=== PATIENT | male | born 1985 | race Caucasian/White ===

== ENCOUNTER 2019-01-11 09:11 | Emergency (ER) | payer BC ==
--- OUTSIDE RECORDS SUMMARY | 2019-01-11 09:16 | XMS REPORT | Continuity of Care Document ---
:1985 External Reference #:[id number] Author Name Aramis Rudolph MD Address [address] [place] [address] Care Team Providers Name Role Phone Shawn Carroll III, MD - Internal Care Team Information Gore Maker [phone] Medicine Althea Luciano MD - Internal Care Team Information Gore Maker Medicine Problems Active Problems Provider Date Allergic rhinitis Aramis Rudolph MD Onset: 12/14/2018 Allergic rhinitis due to pollen Aramis Rudolph MD Onset: 12/14/2018 Social History Type Date Description Comments Sex Unknown Tobacco Use Start: Unknown Patient has never smoked Smoking Status Reviewed: 12/14/18 Patient has never smoked Allergies, Adverse Reactions, Alerts Active Allergies Reaction Severity Comments Date NKDA 12/14/2018 Cat Dander 12/14/2018 Pollen 12/14/2018 Medications Active Medications SIG Qnty Indications Ordering Provider Date Nasonex 2 intranasal 1units J30.1 Aramis Munoz 12/14/2018 50mcg/Act puffs every day MD [facility] Suspension Xyzal 1 tab by mouth 30tabs J30.1 Aramis Munoz 12/14/2018 5mg Tablets every day as MD Ronni needed Pazeo two drops each 2.500ml J30.1 Aramis Munoz 12/14/2018 0.7% Solution eye as needed MD Ronni every day as needed Allergy Nasal [place] Stevie Bradley, 01/04/2018 24 Hour CONTACT LENS EDGE BUFFER-C 50mcg/Act Suspension Flonase Allergy 2 puffs each Unknown Relief nostril every day 50mcg/Act Suspension Eye Allergy Relief Unknown 0.025-0.3% Solution Immunizations Description No Information Available Vital Signs Date Vital Result Comment 12/14/2018 2:38pm BP Systolic 145 mmHg BP Diastolic 105 mmHg Height 67.5 inches 5'7.50" Weight 214.00 lb BMI (Body Mass Index) 33.0 kg/m2 Heart Rate 60 /min O2 % BldC Oximetry 95 % 08/31/2018 10:39am Height 67.5 inches Weight 225.00 lb BMI (Body Mass Index) 34.7 kg/m2 Heart Rate 60 /min Body Temperature 98.5 F O2 % BldC Oximetry 95 % Results Test Date Facility Test Result H/L Range Note Laboratory test [facility] Total <pending> finding 9 [address] [place] [address] [phone] Order [facility] Skin Test <pending> 9 Seasonal and Environmental CBC Auto Diff N2N/CCD Import White Blood Count 8.5 3.5-10.8 9 10^3/uL Red Blood Count 5.22 10^6/uL 4.18-5.48 Hemoglobin 15.4 g/dL 14-18 Hematocrit 44 % 42-52 Mean Corpuscular Volume 85 fL 80-94 Mean Corpuscular Hemoglobin 29 pg 27-31 Mean Corpuscular HGB Conc 35 g/dL 31-36 Red Cell Distribution Width 13 % 10.5-15 Platelet Count 271 10^3/uL 150-450 Mean Platelet Volume 9.2 fL 7.4-10.4 Abs Neutrophils 3.9 10^3/uL 1.5-7.7 Abs Lymphocytes 2.6 10^3/uL 1-4.8 Abs Monocytes 0.8 10^3/uL 0-0.8 Abs Eosinophils 1.0 10^3/uL High 0-0.6 Abs Basophils 0.1 10^3/uL 0-0.2 Abs Nucleated RBC 0.0 10^3/uL Granulocyte % 46.3 % Lymphocyte % 30.8 % Monocyte % 9.4 % Eosinophil % 12.1 % Basophil % 1.4 % Nucleated Red Blood Cells % 0.1 1 CBC Auto Diff 08/31/2018 N2N/CCD Import White Blood Count 8.5 10^3/uL 3.5-10.8 Red Blood Count 5.22 10^6/uL 4.18-5.48 Hemoglobin 15.4 g/dL 14-18 Hematocrit 44 % 42-52 Mean Corpuscular Volume 85 fL 80-94 Mean Corpuscular Hemoglobin 29 pg 27-31 Mean Corpuscular HGB Conc 35 g/dL 31-36 Red Cell Distribution Width 13 % 10.5-15 Platelet Count 271 10^3/uL 150-450 Mean Platelet Volume 9.2 fL 7.4-10.4 Abs Neutrophils 3.9 10^3/uL 1.5-7.7 Abs Lymphocytes 2.6 10^3/uL 1-4.8 Abs Monocytes 0.8 10^3/uL 0-0.8 Abs Eosinophils 1.0 10^3/uL High 0-0.6 Abs Basophils 0.1 10^3/uL 0-0.2 Abs Nucleated RBC 0.0 10^3/uL Granulocyte % 46.3 % Lymphocyte % 30.8 % Monocyte % 9.4 % Eosinophil % 12.1 % Basophil % 1.4 % Nucleated Red Blood Cells % 0.1 1 Procedures Date Code Description Status 12/14/2018 19874 Allergy Tests Percutaneous W/ Allergenic Extracts Completed Medical Devices Description No Information Available Encounters Description No Information Available Assessments Date Code Description Provider 12/14/2018 J30.1 Allergic rhinitis due to pollen Aramis Rudolph MD 12/14/2018 J30.89 Other allergic rhinitis Aramis Rudolph MD Plan of Treatment 12/14/2018 - Aramis Rudolph MDJ30.1 Allergic rhinitis due to pollenNew Medication:Nasonex 50 mcg/Act - 2 intranasal puffs every dayXyzal 5 mg - 1 tab by mouth every day as neededPazeo 0.7 % - two drops each eye as needed every day as jqbrvuT15.89 Other allergic rhinitis Functional Status Description No Information Available Mental Status Description No Information Available Referrals Description No Information Available
--- OUTSIDE RECORDS SUMMARY | 2019-01-11 09:16 | XMS REPORT | Continuity of Care Document ---
:1985 External Reference #:[id number] Author Name Annika Wright NP (transmitted by agent of provider Aramis Rudolph) Address [address] [place] [address] Care Team Providers Name Role Phone Shawn Carroll III, MD - Internal Care Team Information School Bus Driver/Mechanic [phone] Medicine Althea Luciano MD - Internal Care Team Information School Bus Driver/Mechanic Medicine Problems Active Problems Provider Date Allergic rhinitis due to pollen Aramis Rudolph MD Onset: 12/14/2018 Allergic rhinitis Aramis Rudolph MD Onset: 12/14/2018 Chronic allergic conjunctivitis Annika Wright NP Onset: 12/28/2018 Social History Type Date Description Comments Sex Unknown Tobacco Use Start: Unknown Patient has never smoked Smoking Status Reviewed: 12/14/18 Patient has never smoked Allergies, Adverse Reactions, Alerts Active Allergies Reaction Severity Comments Date NKDA 12/14/2018 Cat Dander 12/14/2018 Pollen 12/14/2018 Medications Active Medications SIG Qnty Indications Ordering Provider Date Nasonex 2 intranasal 1units J30.1 Annika Wright NP 12/14/2018 50mcg/Act puffs every day Suspension Xyzal 1 tab by mouth 30tabs J30.1 Aramis Munoz 12/14/2018 5mg Tablets every day as MD Ronni needed Pazeo two drops each 2.500ml J30.1 Annika Wright NP 12/14/2018 0.7% Solution eye as needed every day as needed Allergy Nasal [place] Stevie Bradley, 01/04/2018 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 50mcg/Act Suspension Flonase Allergy 2 puffs each Unknown Relief nostril every day 50mcg/Act Suspension Eye Allergy Relief Unknown 0.025-0.3% Solution Immunizations Description No Information Available Vital Signs Date Vital Result Comment 12/28/2018 11:27am BP Systolic 142 mmHg BP Diastolic 110 mmHg Height 67.5 inches 5'7.50" Weight 214.00 lb BMI (Body Mass Index) 33.0 kg/m2 Heart Rate 64 /min O2 % BldC Oximetry 97 % 12/14/2018 2:38pm BP Systolic 145 mmHg BP Diastolic 105 mmHg Height 67.5 inches 5'7.50" Weight 214.00 lb BMI (Body Mass Index) 33.0 kg/m2 Heart Rate 60 /min O2 % BldC Oximetry 95 % Results Test Date Facility Test Result H/L Range Note Order 12/14/2018 [facility] Skin Test Seasonal < pending> and Environmental CBC Auto 08/31/2018 N2N/CCD Import White Blood Count 8.5 10^3/uL 3.5- 10.8 Diff Red Blood Count 5.22 10^6/uL 4.18-5.48 Hemoglobin [...] 1 Procedures Date Code Description Status 12/14/2018 91239 Allergy Tests Percutaneous W/ Allergenic Extracts Completed Medical Devices Description No Information Available Encounters Type Date Location Provider Dx Diagnosis Office Visit 12/28/2018 11:30a [place] Annika Wright NP J30.1 Allergic rhinitis due to pollen H10.45 Other chronic allergic conjunctivitis Office Visit 12/14/2018 2:30p Zoila Rudolph J30.1 Allergic rhinitis MD due to pollen J30.89 Other allergic rhinitis Assessments Date Code Description Provider 12/28/2018 J30.1 Allergic rhinitis due to pollen Annika Wright NP 12/28/2018 H10.45 Other chronic allergic conjunctivitis Annika Wright NP 12/14/2018 J30.1 Allergic rhinitis due to pollen Aramis Rudolph MD 12/14/2018 J30.89 Other allergic rhinitis Aramis Rudolph MD Plan of Treatment Future Appointment(s):06/28/2019 1:00 pm - Annika Wright NP at [id number] - Annika Wright NPJ30.1 Allergic rhinitis due to pollenComments:Patient presents for discussion of his skin testing to environmental allergens. All positives were discussed which includes grass and short ragweed. The allergy test correlate with the patient's symptoms is when he goes through weeds that is most reactive. He is currently taking Xyzal 5 mg daily, Nasonex 50 MCG's 2 sprays each nares daily, and he uses the pen daily as needed.It is difficult for him to avoid these situations given his employment, so I recommend he take the Xyzal every day use the nasal spray and Pazeo for breakthrough symptoms.We discussed immunotherapy he is not interested at this time he would like to wait and see how it goes with the medications. He is in agreement to a 6 month follow-up discuss at that time.H10.45 Other chronic allergic conjunctivitis Functional Status Description No Information Available Mental Status Description No Information Available Referrals Description No Information Available
--- OUTSIDE RECORDS SUMMARY | 2019-01-11 09:16 | XMS REPORT | Continuity of Care Document ---
:1985 External Reference #:[id number] Author Name Annika Wright NP (transmitted by agent of provider Silva Barnard) Address [address] [place] [address] Care Team Providers Name Role Phone Shawn Carroll III, MD - Internal Care Team Information Cleaning Manager Medicine Althea Luciano MD - Internal Care Team Information Cleaning Manager [phone] Medicine Problems Active Problems Provider Date Allergic [...] [facility] every day as needed Allergy Nasal [place] Stevie Bradley, 01/04/2018 24 Hour FUNCTIONAL ANALYST-C 50mcg/Act Suspension Flonase Allergy 2 puffs each [...] and Asthma Ige Total <pending> finding 9 [address] [place] [address] [phone] Order [facility] Skin [...] 1 Procedures Date Code Description Status 12/14/2018 72619 Allergy Tests Percutaneous W/ Allergenic Extracts Completed Medical Devices Description No Information Available Encounters Type Date Location Provider Dx Diagnosis Office Visit 12/14/2018 Nabeel Chambers30.1 Allergic rhinitis 2:30p MD due to pollen J30.89 Other allergic rhinitis Assessments Date Code Description Provider 12/14/2018 J30.1 Allergic rhinitis due to pollen Aramis Rudolph MD 12/14/2018 J30.89 Other allergic rhinitis Aramis Rudolph MD Plan of Treatment No Information Available Functional Status Description No Information Available Mental Status Description No Information Available Referrals Description No Information Available
--- OUTSIDE RECORDS SUMMARY | 2019-01-11 09:17 | XMS REPORT | Continuity of Care Document ---
:1985 External Reference #:[id number] Author Name Aramis Rudolph MD (transmitted by agent of provider Silva Baranrd) Address [address] [place] [address] Care Team Providers Name Role Phone Shawn Carroll III, MD - Internal Care Team Information Spar Cap Beveler [phone] Medicine Althea Luciano MD - Internal Care Team Information Spar Cap Beveler [phone] Medicine Problems Description No Information Available Social History Type Date Description Comments Sex Unknown Tobacco Use Start: Unknown Patient has never smoked Allergies, Adverse Reactions, Alerts Active Allergies Reaction Severity Comments Date NKDA 12/14/2018 Cat Dander 12/14/2018 Pollen 12/14/2018 Medications Active Medications SIG Qnty Indications Ordering Provider Date Allergy Nasal [place] [address] Stevie Bradley, 01/04/2018 Hour DOORS PREFITTER-C 50mcg/Act Suspension Flonase Allergy Relief 2 puffs each Unknown nostril every day 50mcg/Act Suspension Eye Allergy [...] Date Facility Test Result H/L Range Note CBC Auto Diff 08/31/2018 N2N/CCD Import White Blood 8.5 10^3/uL 3.5- 10.8 Count Red Blood Count 5.22 10^6/uL 4.18-5.48 Hemoglobin [...] Red Blood Cells % 0.1 1 Procedures Description No Information Available Medical Devices Description No Information Available Encounters Description No Information Available Assessments Description No Information Available Plan of Treatment No Information Available Functional Status Description No Information Available Mental Status Description No Information Available Referrals Description No Information Available
[2019-01-11 09:25] VITALS: BP 139/98
--- NOTE | 2019-01-11 09:45 | UC ---
Eye Complaint HPI - HPI Summary HPI Summary: Mr. Tello has had a red and draining right eye for couple days. It was matted shut this morning. It's irritated but doesn't really hurt. His son had at first and then his and now he has it. They're both treated with antibiotics - History of Current Complaint Chief Complaint: UCGeneralIllness Stated Complaint: EYE IRRITATION Time Seen by Provider: 01/11/19 09:34 Hx Obtained From: Patient Onset/Duration: Gradual Onset Timing: Constant Severity Initially: Mild Severity Currently: Mild Pain Intensity: 1 Location of Injury: Conjunctiva Character: Foreign Body Sensation Aggravating Factor(s): Nothing Alleviating Factor(s): Nothing Associated Signs And Symptoms: Positive: Negative - Allergies/Home Medications Allergies/Adverse Reactions: Allergies Allergy/AdvReac Type Severity Reaction Status Date / Time No Known Allergies Allergy Verified 01/11/19 09:16 Home Medications: Home Medications Ketotifen Fumarate [Allergy Eye Drops] 5 ml OP Q2H 01/11/19 [History Confirmed 01/11/19] PMH/Surg Hx/FS Hx/Imm Hx Previously Healthy: Yes - Surgical History Surgical History: Yes Surgery Procedure, Year, and Place: [facility] 2007 - Social History Alcohol Use: None Substance Use Type: None Smoking Status (MU): Never Smoked Tobacco Review of Systems All Other Systems Reviewed And Are Negative: Yes Constitutional: Positive: Negative Skin: Positive: Negative ENT: Positive: Sore Throat, Ear Ache, Nasal Discharge Respiratory: Positive: Cough Is Patient Immunocompromised?: No Physical Exam - Summary Physical Exam Summary: He is nontoxic in appearance with stable vitals Triage Information Reviewed: Yes Appearance: Well-Appearing Vital Signs: Initial Vital Signs Temp 98.7 F 01/11/19 09:18 Pulse 90 01/11/19 09:18 Resp 18 01/11/19 09:18 BP 139/98 01/11/19 09:18 Pulse Ox 96 01/11/19 09:18 Vital Signs Reviewed: Yes Eyes: Positive: Conjunctiva Inflamed ENT Exam: Normal ENT: Positive: Pharynx normal, TMs normal Neck: Positive: Supple, Nontender, No Lymphadenopathy Respiratory: Positive: Lungs clear, Normal breath sounds, No respiratory distress Cardiovascular: Positive: RRR Eye Complaint Course/Dx - Course Course Of Treatment: This very well could be viral but it is in one eye only and I will treat with antibiotic drops. - Differential Dx/Diagnosis Provider Diagnosis: Conjunctivitis Discharge ED - Sign-Out/Discharge Documenting (check all that apply): Patient Departure All imaging exams completed and their final reports reviewed: No Studies - Discharge Plan Condition: Stable Disposition: HOME Patient Education Materials: Conjunctivitis (ED) Referrals: Stevie Bradley NP [Primary Care Provider] - - Billing Disposition and Condition Condition: STABLE Disposition: Home
== END 2019-01-11 09:52 | disposition home or self-care (01) ==
LOC: UCEAST 09:11
DX: H10.9 Unspecified conjunctivitis (principal); J02.9 Acute pharyngitis, unspecified; R09.89 Other specified symptoms and signs involving the circulatory and respiratory systems; H92.09 Otalgia, unspecified ear
CPT/HCPCS: 99212; G0463

== ENCOUNTER 2019-06-05 17:13 | Emergency (ER) | payer BC ==
[2019-06-05 17:39] VITALS: BP 144/90
[2019-06-05] MEDS ORDERED: Acetaminophen TAB* 325 MG PO ONE (18:00)
[2019-06-05 18:07] LABS: Influenza A Molecular POSITIVE (Negative)
--- NOTE | 2019-06-05 18:39 | UC ---
FLU HPI - HPI Summary HPI Summary: 33 yo with 2 day history of cough and fever, malaise and contact with flu. No hx of asthma or pneumonia. - History of Current Complaint Chief Complaint: UCGeneralIllness Stated Complaint: FLU SYMPTOMS Time Seen by Provider: 06/05/19 18:30 Hx Obtained From: Patient Onset/Duration: Sudden Onset, Lasting Days - 3 Severity Currently: Moderate Severity Initially: Moderate Pain Intensity: 7 Associated Signs & Symptoms: Positive: Fever, T Max - 103, Cough, Sore Throat, Nasal Congestion, Headache - Risk Factors Influenza Risk Factors: Negative - Allergy/Home Medications Allergies/Adverse Reactions: Allergies Allergy/AdvReac Type Severity Reaction Status Date / Time No Known Allergies Allergy Verified 06/05/19 17:40 Home Medications: Home Medications Fluticasone NASAL SPRAY 50MCG* [Flonase NASAL SPRAY 50MCG*] 1 spray INH BID [History Confirmed 06/05/19] Oseltamivir CAP* [Tamiflu CAP*] 75 mg PO BID #10 cap 06/05/19 [Rx] PMH/Surg Hx/FS Hx/Imm Hx Previously Healthy: Yes - Surgical History Surgical History: Yes Surgery Procedure, Year, and Place: 2007 - Family History Known Family History: Positive: Other - children have influenza. - Social History Occupation: Employed Full-time Alcohol Use: None Substance Use Type: None Smoking Status (MU): Never Smoked Tobacco Review of Systems All Other Systems Reviewed And Are Negative: Yes Constitutional: Positive: Fever, Fatigue Skin: Positive: Negative Eyes: Positive: Negative ENT: Positive: Sore Throat Respiratory: Positive: Cough Cardiovascular: Positive: Negative Gastrointestinal: Positive: Negative Genitourinary: Positive: Negative Motor: Positive: Negative Neurovascular: Positive: Negative Musculoskeletal: Positive: Arthralgia, Myalgia Neurological/Mental Status: Positive: Headache Psychological: Positive: Negative Is Patient Immunocompromised?: No Physical Exam Triage Information Reviewed: Yes Appearance: No Pain Distress, Ill-Appearing Vital Signs: Initial Vital Signs Temp 103.1 F 06/05/19 17:36 Pulse 104 06/05/19 17:36 Resp 16 06/05/19 17:36 BP 144/90 06/05/19 17:36 Pulse Ox 97 06/05/19 17:36 Eyes: Positive: Conjunctiva Clear ENT: Positive: Pharynx normal, TM dull - left retracted Neck: Positive: Supple, Nontender, No Lymphadenopathy Respiratory: Positive: Lungs clear, Normal breath sounds Cardiovascular: Positive: RRR, No Murmur Musculoskeletal Exam: Normal Neurological: Positive: Alert, Muscle Tone Normal Psychological Exam: Normal Skin Exam: Normal Diagnostics - Laboratory Lab Results: influenza A positive Flu Course/Dx - Course Course Of Treatment: tamiflu and symptoms relievers. - Differential Dx/Diagnosis Differential Diagnosis/HQI/PQRI: Influenza, Upper Respiratory Infection Provider Diagnosis: Influenza A Discharge ED - Sign-Out/Discharge Documenting (check all that apply): Patient Departure All imaging exams completed and their final reports reviewed: No Studies - Discharge Plan Condition: Stable Disposition: HOME Prescriptions: Oseltamivir CAP* [Tamiflu CAP*] 75 mg PO BID #10 cap Patient Education Materials: Influenza (ED) Forms: *Work Release Referrals: Stevie Bradley SERVICE WRITER [Primary Care Provider] - Additional Instructions: Begin Tamiflu to blunt the symptoms of influenza. Use ibuprofen 600mh up to 4 times per day OR acetaminophen 650mg up to 4 times per day for relief of fever and aches. Increase fluids to ensure that you stay well hydrated. - Billing Disposition and Condition Condition: STABLE Disposition: Home
== END 2019-06-05 18:45 | disposition home or self-care (01) ==
LOC: UCEAST 17:13
DX: J10.1 Influenza due to other identified influenza virus with other respiratory manifestations (principal)
CPT/HCPCS: 99212; A9270-GY; G0463